=== PATIENT | female | born 1975 | race Two or more races ===

== ENCOUNTER → 2017-03-16 07:26 | Outpatient (CLI) | payer OTHER | END | disposition home or self-care (01) | LOC: LAB 07:26 | DX: D64.89 Other specified anemias (principal); E88.89 Other specified metabolic disorders; D68.8 Other specified coagulation defects; N39.0 Urinary tract infection, site not specified ==

== ENCOUNTER → 2017-03-16 07:40 | Outpatient (CLI) | payer OTHER | END | disposition home or self-care (01) | LOC: EKG 07:40 | DX: I49.8 Other specified cardiac arrhythmias (principal) ==

== ENCOUNTER 2017-03-16 08:42 | Outpatient (CLI) | payer OTHER | END 2017-03-16 08:48 | disposition home or self-care (01) | LOC: RAD 08:42 | DX: Z76.89 Persons encountering health services in other specified circumstances (principal) ==

== ENCOUNTER 2017-03-26 10:34 | Outpatient (CLI) | payer OTHER ==
[2017-03-30] MEDS ORDERED: HYDROCHLOROTHIA25 MG PO (14:37)
[2017-03-30] MEDS ORDERED: VASOTEC10 MG PO (14:37)
== END 2017-03-26 10:41 | disposition home or self-care (01) ==
LOC: LAB 10:34
DX: A49.02 Methicillin resistant Staphylococcus aureus infection, unspecified site (principal)

== ENCOUNTER 2017-04-03 05:55 | Day surgery (SDC) | payer OTHER ==
[~2017-04-03 05:55] MED LIST: HYDROCHLOROTHIA25 MG PO; VASOTEC10 MG PO
== END 2017-04-03 14:30 | disposition home or self-care (01) ==
LOC: CIR.AMB 05:55
DX: M23.322 Other meniscus derangements, posterior horn of medial meniscus, left knee (principal); M22.42 Chondromalacia patellae, left knee; M65.862 Other synovitis and tenosynovitis, left lower leg; S83.092A Other subluxation of left patella, initial encounter

== ENCOUNTER → 2017-06-05 17:44 | Outpatient (CLI) | payer OTHER | END | disposition home or self-care (01) | LOC: LAB 17:44 | DX: M25.462 Effusion, left knee (principal) ==

== ENCOUNTER 2017-09-12 15:49 | Outpatient (CLI) | payer OTHER | END 2017-09-12 16:03 | disposition home or self-care (01) | LOC: LAB 15:49 | DX: M13.88 Other specified arthritis, other site (principal) ==

== ENCOUNTER 2017-09-12 16:29 | Outpatient (CLI) | payer OTHER | END 2017-09-12 16:31 | disposition home or self-care (01) | LOC: RAD 16:29 | DX: M25.562 Pain in left knee (principal); M17.12 Unilateral primary osteoarthritis, left knee ==

== ENCOUNTER 2017-09-27 20:08 | Outpatient (CLI) | payer OTHER | END 2017-09-27 22:00 | disposition home or self-care (01) | LOC: LAB 20:08 | DX: M25.48 Effusion, other site (principal); M12.261 Villonodular synovitis (pigmented), right knee ==

== ENCOUNTER 2017-11-08 19:05 | Outpatient (CLI) | payer OTHER | END 2017-11-08 22:00 | disposition home or self-care (01) | LOC: RAD 19:05 | DX: M25.511 Pain in right shoulder (principal); M25.551 Pain in right hip ==